=== PATIENT | male | born 1985 | race Asian ===

== ENCOUNTER 2018-04-04 15:51 | Emergency (ER) | payer OTHER ==
[~2018-04-04] VITALS: Ht 188 cm; Wt 137.0 kg
[2018-04-04 16:01] VITALS: Ht 188 cm; Wt 137.0 kg
[2018-04-04 17:48] LABS: UA SPECIFIC GRAVITY 1.025 (1.005-1.035); microscopic required? YES; urine erythrocyte 3+ (NEGATIVE)
[2018-04-04 18:18] LABS: BASOPHIL % 0.4 % (0-2); PLATELET COUNT 342 x10^3mcL (130-400); RED CELL DISTRIBUTION WIDTH 13.7 % (11.5-14.5)
[2018-04-04 18:37] LABS: CALCIUM 9.5 mg/dL (8.5-10.1); CARBON DIOXIDE 27.4 mmol/L (21-32); CHLORIDE SERUM 104 mmol/L (98-107); GLUCOSE SERUM 86 mg/dL (74-106); POTASSIUM SERUM 3.7 mmol/L (3.5-5.1); SODIUM SERUM 140 mmol/L (136-145)
[2018-04-04 18:41] LABS: ALBUMIN 4.3 g/dL (3.4-5.0); ALKALINE PHOSPHATASE 100 U/L (46-116); ALT/SGPT 36 U/L (16-63); AST/SGOT 21 U/L (15-37); BILIRUBIN TOTAL 0.76 mg/dL (0.20-1.00); TOTAL PROTEIN, SERUM 7.9 g/dL (6.4-8.2)
[2018-04-04 19:11] LABS: CREATININE SERUM 0.7 mg/dL (0.7-1.3); GFR1 > 60 mL/min
[2018-04-04 19:39] VITALS: BP 137/88
== END 2018-04-04 19:39 | disposition home or self-care (01) ==
LOC: ED 15:51
PROVIDERS: Specialist
DX: N23 Unspecified renal colic (principal); N13.30 Unspecified hydronephrosis
CPT/HCPCS: J1885

== ENCOUNTER 2018-04-07 09:31 | Observation (INO) | payer OTHER ==
[~2018-04-07] VITALS: Ht 185.4 cm; Wt 134.9 kg
[2018-04-07 09:41] VITALS: Ht 185.4 cm; Wt 134.9 kg
[2018-04-07 10:50] LABS: BASOPHIL % 0.3 % (0-2); PLATELET COUNT 289 x10^3mcL (130-400); RED CELL DISTRIBUTION WIDTH 13.8 % (11.5-14.5)
[2018-04-07 10:57] LABS: T3 TOTAL 1.34 ng/mL
[2018-04-07 10:58] LABS: CALCIUM 9.1 mg/dL (8.5-10.1); CARBON DIOXIDE 30.9 mmol/L (21-32); CHLORIDE SERUM 101 mmol/L (98-107); CREATININE SERUM 1.3 mg/dL (0.7-1.3); GFR1 > 60 mL/min; GLUCOSE SERUM 95 mg/dL (74-106); POTASSIUM SERUM 3.7 mmol/L (3.5-5.1); SODIUM SERUM 135 mmol/L (136-145)
[2018-04-07 10:58] LABS: microscopic required? YES; urine erythrocyte 2+ (NEGATIVE)
[2018-04-07 11:07] LABS: ALBUMIN 3.9 g/dL (3.4-5.0); ALKALINE PHOSPHATASE 98 U/L (46-116); ALT/SGPT 32 U/L (16-63); AST/SGOT 19 U/L (15-37); BILIRUBIN TOTAL 0.8 mg/dL (0.20-1.00); TOTAL PROTEIN, SERUM 7.7 g/dL (6.4-8.2)
[2018-04-07 11:17] LABS: AMPHETAMINE QUAL UR NONE DETECTED (See below)
[2018-04-07 11:29] LABS: FREE T4 1.21 ng/dL (0.76-1.46); FREE THYROXINE INDEX 3.8 ug/dL (1.4-4.5); T4(THYROXINE) 10.2 ug/dL (4.7-13.3)
[2018-04-07 11:32] LABS: MAGNESIUM 1.7 mg/dL (1.8-2.4); PHOSPHOROUS 2.9 mg/dL (2.5-4.9)
[2018-04-07 13:53] VITALS: BP 125/84
[2018-04-07 17:22] VITALS: BP 109/63
[2018-04-07 20:58] VITALS: BP 125/77
[2018-04-08 06:07] VITALS: BP 118/72
[2018-04-08 06:10] LABS: BASOPHIL % 0.4 % (0-2); PLATELET COUNT 272 x10^3mcL (130-400); RED CELL DISTRIBUTION WIDTH 14.1 % (11.5-14.5)
[2018-04-08 06:24] LABS: CALCIUM 9.1 mg/dL (8.5-10.1); CARBON DIOXIDE 29.7 mmol/L (21-32); CHLORIDE SERUM 105 mmol/L (98-107); CREATININE SERUM 0.9 mg/dL (0.7-1.3); GFR1 > 60 mL/min; GLUCOSE SERUM 94 mg/dL (74-106); PHOSPHOROUS 3.3 mg/dL (2.5-4.9); SODIUM SERUM 141 mmol/L (136-145)
[2018-04-08] MEDS ORDERED: NOR5 PO (11:24)
[2018-04-08] MEDS ORDERED: FLO4 PO ×2 (11:24→12:55)
[2018-04-08] MEDS ORDERED: APAP/HYDROCODON1 T13 PO ×2 (11:25→12:41)
[2018-04-08] MEDS ORDERED: LAC PO (11:30)
[2018-04-08] MEDS ORDERED: LEVAQUIN750 MG PO (11:30)
[2018-04-08] MEDS ORDERED: COL100 PO (12:55)
[2018-04-08 13:21] VITALS: BP 125/74
== END 2018-04-08 15:27 | disposition home or self-care (01) | DRG 694 ==
LOC: ED 09:31 → DU 10:09
PROVIDERS: Emergency Medicine; Family Medicine
DX: N13.2 Hydronephrosis with renal and ureteral calculous obstruction (principal); E87.1 Hypo-osmolality and hyponatremia; N17.0 Acute kidney failure with tubular necrosis; N39.0 Urinary tract infection, site not specified; E83.42 Hypomagnesemia; R80.9 Proteinuria, unspecified; I10 Essential (primary) hypertension; E78.5 Hyperlipidemia, unspecified; E66.9 Obesity, unspecified; Z87.442 Personal history of urinary calculi; Z68.38 Body mass index [BMI] 38.0-38.9, adult
CPT/HCPCS: 83880; 84439; G0378; J0696; J1885; J3010; J3475; J7030; Q0092